=== PATIENT | male | born 1955 | race Caucasian/White ===

== ENCOUNTER 2024-05-26 08:38 | Outpatient (AMB) | payer MEDICARE, OTHER, SELFPAY ==
--- NOTE | 2024-05-26 08:50 | MHC.OFFVIS ---
Intake Visit Reasons: BPH/ Nephrolithiasis/ Retro Ejaculation Intake Note: Patient is present for BPH/Nephrolithiasis/Retro Ejaculation Urology Medication:tamsulosin Antibiotic Allergy:none Blood Thinner:none Library Circulation Assistant Required: No Allergies No Known Allergies Allergy (Verified 05/26/24 08:51) HPI Comments Details: Elliot is a pleasant male. He is a patient of Dr. Alberto. He seen for the following urologic conditions - microscopic hematuria - nephrolithiasis - lower urinary tract symptoms Ongoing intermittent hematuria Difficulty with urinary stream had been placed on tamsulosin with variable effect Recent ultrasound shows 2 cm x 2 bladder stones Will switch tamsulosin to terazosin 5 mg and add finasteride Has enlarged prostate Cystoscopy in office Did discuss high likelihood he will require prostate procedure later in the year Review of Systems Const Denies chills and Denies fever(s) Card Reports no additional complaints and Denies syncope Resp Denies cough GI Denies abdominal pain and Denies heartburn Reports as per HPI and Denies change in libido Neuro Denies syncope Psych Denies change in libido Endo Denies change in libido Physical Exam Const General: cooperative, healthy appearing, comfortable and no acute distress Orientation/consciousness: patient oriented x3 HEENT Face and sinus: Yes normal facial exam Mouth: moist mucous membranes Neck Neck: Yes normal visual inspection, Yes full ROM and Yes trachea midline Chest Chest palpation & inspection: normal inspection of the chest Resp Effort & Inspection: normal respiratory effort, able to speak in complete sentences and no respiratory distress GI Inspection: Yes normal to inspection Back/Spine/Pelvis Cervical Spine: normal cervical lordosis Thoracic/Lumbar Spine: thoracic and lumbar spine normal to inspection Skin General skin exam: no rashes or lesions noted Neuro General: patient oriented x3, gait normal, tone normal and moves all extremities Extrem General: Yes normal to inspection and Yes capillary refill normal Results AMB Urinalysis, Automated UA Leukoctes 0 Kuldip/uL Last Edit by FLOR Kerr on 05/26/24 09:02 UA Nitrite Negative Last Edit by FLOR Kerr on 05/26/24 09:02 UA Urobilinogen 0.2 mg/dL Last Edit by FLOR Kerr on 05/26/24 09:02 UA Protein 100 mg/dL Last Edit by FLOR Kerr on 05/26/24 09:02 UA pH 5.5 Last Edit [facility] on 05/26/24 09:02 UA Blood 200 Miguel Angel/uL Last Edit by FLOR Kerr on 05/26/24 09:02 UA Specific Epps 1.025 Last Edit by FLOR Kerr on 05/26/24 09:02 UA Ketone Negative Last Edit by FLOR Kerr on 05/26/24 09:02 UA Bilirubin 0 mg/dL Last Edit [facility] on 05/26/24 09:02 UA Glucose 0 mg/dL Last Edit by [facility] on 05/26/24 09:02 Assessment & Plan Assessment & Plan (1) Bladder stones: Code(s): N21.0 - Calculus in bladder Category: Medical (2) Bladder outlet obstruction: Code(s): N32.0 - Bladder-neck obstruction Category: Medical (3) Microscopic hematuria: Code(s): R31.29 - Other microscopic hematuria Category: Medical Plan Adjust medications Four week follow-up cysto for bladder stones Orders: Orders AMB Urinalysis Automated Today Z13.9 - Encounter for screening, unspecified Patient Instructions: Imaging studies, laboratory and physical exam results were discussed and reviewed in detail. No major barriers to patient understanding were identified. An opportunity to ask questions regarding the treatment plan was provided. All questions were answered. The patient expressed understanding and agreement with the above treatment plan. The patient is aware they should contact our office by phone for worsening of their current condition or the appearance of new urologic symptoms. Compliance is encouraged with any medications and followup testing that is ordered. It is a privilege to participate in the urologic care of your patient. If you have any questions or concerns regarding treatment for the above conditions, or other urologic issues, please do not hesitate to contact me. The office telephone contact is [phone]. This note is constructed using voice recognition software. While every effort has been made to ensure accuracy group billing coordinator errors may have been included. Yours sincerely, Dr Tonio Veras MD, [facility] - Urology Providers of Expert, Compassionate Care for the Genitourinary System Coding Level of Care Code New Pt Level 4 (02521) Diagnoses Bladder stones N21.0 Bladder outlet obstruction N32.0 Microscopic hematuria R31.29
== END 2024-05-26 09:21 | disposition home or self-care (01) ==
PROVIDERS: PCP Physician Assistant Medical; Visit Provider Urology
DX: N21.0 Calculus in bladder (principal); N32.0 Bladder-neck obstruction; R31.29 Other microscopic hematuria; Z13.9 Encounter for screening, unspecified
CPT/HCPCS: 99204

== ENCOUNTER → 2024-05-26 08:38 | Outpatient (BNVA) | payer MEDICARE, OTHER, SELFPAY | PROVIDERS: PCP Physician Assistant Medical; Visit Provider Urology | DX: R31.29 Other microscopic hematuria (principal); N21.0 Calculus in bladder; N32.0 Bladder-neck obstruction | CPT/HCPCS: 81003; 99202 ==

== ENCOUNTER 2024-06-19 11:04 | Outpatient (REF) | payer MEDICARE, OTHER, SELFPAY ==
[2024-06-19 13:02] LABS: Appearance Urine Clear; Color Urine Yellow; Glucose Urine UA Negative (Negative); Leukocyte Esterase Urine Trace (Negative); Nitrite Urine Negative (Negative); PH 6.5 (5.0-9.0); UMIC TRIGGER UA YES; Urine Blood Moderate (2+) (Negative); Urine Ketones Negative (Negative); Urine Protein 300 (3+) mg/dL (Neg-Trace)
[2024-06-19 13:06] LABS: Bacteria Urine None Seen (None Seen); RBC Urine >20 /HPF (0-2); Squamous Epithelial Cell Urine 0-2 /HPF (0-2)
== END 2024-06-19 11:05 | disposition home or self-care (01) ==
LOC: HO.LAB 11:04
PROVIDERS: PCP Physician Assistant Medical; Visit Provider Urology
DX: R31.29 Other microscopic hematuria (principal)
CPT/HCPCS: 81001; 87086

== ENCOUNTER 2024-06-22 10:51 | Outpatient (AMB) | payer MEDICARE, OTHER, SELFPAY ==
--- NOTE | 2024-06-22 11:07 | MHC.OFFVIS ---
Intake Visit Reasons: cysto(Frequency/Possible UTI) Intake Note: Patient is Present for Cystoscopy/Bladder Stones Urology Med: Finasteride, Terazosin, Tamsulosin Antibiotic Allergy: None Blood Thinner:none URO- G Disposable Cystoscope lot: [id number] exp:01/06/2027 Allergies No Known Allergies Allergy (Verified 06/22/24 11:08) HPI Comments Details: Elliot is a pleasant male. He is a patient of Dr. Alberto. He seen for the following urologic conditions - microscopic hematuria - nephrolithiasis - lower urinary tract symptoms Ongoing intermittent hematuria Difficulty with urinary stream had been placed on tamsulosin with variable effect Recent ultrasound shows 2 cm x 2 bladder stones Will switch tamsulosin to terazosin 5 mg and add finasteride Has enlarged prostate Cystoscopy in office Did discuss high likelihood he will require prostate procedure later in the year Plan on laser procedure bladder stones Review of Systems Const Denies chills and Denies fever(s) Card Reports no additional complaints and Denies syncope Resp Denies cough GI Denies abdominal pain and Denies heartburn Reports as per HPI and Denies change in libido Neuro Denies syncope Psych Denies change in libido Endo Denies change in libido Physical Exam Const General: cooperative, healthy appearing, comfortable and no acute distress Orientation/consciousness: patient oriented x3 HEENT Face and sinus: Yes normal facial exam Mouth: moist mucous membranes Neck Neck: Yes normal visual inspection, Yes full ROM and Yes trachea midline Chest Chest palpation & inspection: normal inspection of the chest Resp Effort & Inspection: normal respiratory effort, able to speak in complete sentences and no respiratory distress GI Inspection: Yes normal to inspection Back/Spine/Pelvis Cervical Spine: normal cervical lordosis Thoracic/Lumbar Spine: thoracic and lumbar spine normal to inspection Skin General skin exam: no rashes or lesions noted Neuro General: patient oriented x3, gait normal, tone normal and moves all extremities Extrem General: Yes normal to inspection and Yes capillary refill normal Office Procedures Cystoscopy Consent Discussed risk and benefit or proposed procedure with the patient. Information consent for procedure given to the patient. Discussed technical aspects, risks, benefits and alternatives in full. Addressed all of the patient's questions and concerns regarding the procedure. The patient demonstrated knowledge and understanding. They wish to proceed with this procedure. Preparation The patient was prepped in the usual manner. A sourcing manager was present and in the room. Genitalia was prepped with betadine solution in a sterile manner. Lidocaine Jelly 2% was placed into the urethra and 16Fr flexible Olympus cystoscope was inserted into the meatus after adequate lubrication. Procedure Cystoscopy performed using a disposable Urovue digital 16 Vietnamese cystoscope. Meatus normal position Urethra anterior and posterior urethra normal Prostatic Urethra trilobar hyperplasia Bladder examination with retroflexion of cystoscope Bladder Orifices normal shape and position Bladder Capacity medium - 2 bladder stones Trabeculations - Cellule Formation - Diverticulum Formation - Mucosal Erythema - Bladder Tumor - [id number] DISPOSABLE SCOPE URO-G FLEXIBLE SCOPE Procedure code (CPT) selection complete Office Meds lidocaine HCl 2 % mucosal jelly in applicator Performing Provider: Tonio Veras MD Performing Location: [facility] [place] [facility] Administered by: Alvin Rodriguez LPN on 06/22/24 11:49 Dose Route Admin Location Dispensed Lot Number Expiration Date [facility] [place] Hydraulic Elevator Constructor 10 mL intra-urethral 10 mL nitrofurantoin monohydrate/macrocrystals 100 mg capsule Performing Provider: Tonio Veras MD Performing Location: [facility] [facility] Administered by: Alvin Rodriguez LPN on 06/22/24 11:49 Dose Route Admin Location Dispensed Lot Number Expiration Date [facility] [place] Hydraulic Elevator Constructor 100 mg PO 1 cap naproxen 500 mg tablet Performing Provider: Tonio Veras MD Performing Location: [facility] [place] [facility] Administered by: Alvin Rodriguez LPN on 06/22/24 11:49 Dose Route Admin Location Dispensed Lot Number Expiration Date [place] Hydraulic Elevator Constructor 500 mg PO 1 tab Results AMB Urinalysis, Automated UA Leukoctes 0 Kuldip/uL Last Edit by YASMEEN Posada on 06/22/24 11:45 UA Nitrite Negative Last Edit by YASMEEN Posada on 06/22/24 11:45 UA Urobilinogen 0.2 mg/dL Last Edit by YASMEEN Posada on 06/22/24 11:45 UA Protein 100 mg/dL Last Edit by YASMEEN Posada on 06/22/24 11:45 UA pH 7.5 Last Edit by YASMEEN Posada on 06/22/24 11:45 UA Blood 200 Miguel Angel/uL Last Edit by YASMEEN Posada on 06/22/24 11:45 UA Specific [place] 1.015 Last Edit by Carli Chase, RMA on 06/22/24 11:45 UA Ketone Negative Last Edit by Carli Chase RMA on 06/22/24 11:45 UA Bilirubin 0 mg/dL Last Edit by Carli Chase, RMA on 06/22/24 11:45 UA Glucose 0 mg/dL Last Edit by Carli Chase, A on 06/22/24 11:45 Results Reviewed Results Reviewed: Laboratory Last Values Urine pH (Auto) 7.5 06/22/24 11:44 Specific [place] (Auto) 1.015 06/22/24 11:44 Urine Protein (Auto) 100 mg/dL 06/22/24 11:44 Glucose (UA)(Auto) 0 mg/dL 06/22/24 11:44 Urine Ketones (Auto) Negative 06/22/24 11:44 Urine Blood (Auto) 200 Miguel Angel/uL 06/22/24 11:44 Urine Nitrite (Auto) Negative 06/22/24 11:44 Urine Bilirubin (Auto) 0 mg/dL 06/22/24 11:44 Urine Urobilinogen (Auto) 0.2 mg/dL 06/22/24 11:44 Leukocyte Esterase (Auto) 0 Kuldip/uL 06/22/24 11:44 Assessment & Plan Assessment & Plan (1) Bladder stones: Code(s): N21.0 - Calculus in bladder Category: Medical (2) Bladder outlet obstruction: Code(s): N32.0 - Bladder-neck obstruction Category: Medical Plan Risks, benefits and alternatives to therapy were discussed. These include but are not limited to infection, bleeding, damage to local organs and tissues, need for further interventions. Anesthetic risks regarding cardiac arrhythmia, blood clots, and potential mortality were discussed. The patient understands the typical recovery time and the outpatient nature of the procedure. After consideration of these risks the patient gives full informed consent and they wish to move ahead with the procedure. Orders: Orders AMB Cystoscopy 06/22/24 N21.0 - Calculus in bladder AMB Urinalysis Automated 06/22/24 Z13.9 - Encounter for screening, unspecified Patient Instructions: Imaging studies, laboratory and physical exam results were discussed and reviewed in detail. No major barriers to patient understanding were identified. An opportunity to ask questions regarding the treatment plan was provided. All questions were answered. The patient expressed understanding and agreement with the above treatment plan. The patient is aware they should contact our office by phone for worsening of their current condition or the appearance of new urologic symptoms. Compliance is encouraged with any medications and followup testing that is ordered. It is a privilege to participate in the urologic care of your patient. If you have any questions or concerns regarding treatment for the above conditions, or other urologic issues, please do not hesitate to contact me. The office telephone contact is [phone]. This note is constructed using voice recognition software. While every effort has been made to ensure accuracy histologist technologist errors may have been included. Yours sincerely, Dr Tonio Veras MD, [facility] - Urology Providers of Expert, Compassionate Care for the Genitourinary System Coding Level of Care Code Est Pt Level 4 (52272) Diagnoses Bladder stones N21.0 Bladder outlet obstruction N32.0 CPT Codes Cystoscopy - CPT: [id number] ([id number])
== END 2024-06-22 12:21 | disposition home or self-care (01) ==
PROVIDERS: PCP Physician Assistant Medical; Visit Provider Urology
DX: N21.0 Calculus in bladder (principal); Z13.9 Encounter for screening, unspecified
CPT/HCPCS: 52000; 99214

== ENCOUNTER → 2024-06-22 10:51 | Outpatient (BNVA) | payer MEDICARE, OTHER, SELFPAY | PROVIDERS: PCP Physician Assistant Medical; Visit Provider Urology | DX: N21.0 Calculus in bladder (principal); N32.0 Bladder-neck obstruction | CPT/HCPCS: 52000; 81003; 99212 ==

== ENCOUNTER 2024-08-14 08:01 | Day surgery (SDC) | payer MEDICARE, OTHER, SELFPAY ==
[2024-08-10 11:12] VITALS: BMI 25.6
--- NOTE | 2024-08-10 13:57 | HO.ANESPROP2 ---
Documented by User: Lisa Beck NP 08/10/24 13:57 HPI - Anesthesia Eval Consult details Narrative: 69yo M for Laser Ablation Prostate w/Green Light, bladder stone removal PMFSH Active Problems Active Problems: All Active Problems Microscopic hematuria (Acute) Bladder outlet obstruction (Acute) Bladder stones (Acute) Past Medical History Medical History Horseshoe kidney BPH (benign prostatic hyperplasia) Renal calculi Diverticular disease Elevated cholesterol Surgical History Surgical History (Updated 08/14/24 @ 08:28 by Cleopatra Sanchez, RN) Hx of oral surgery Hx of vasectomy Social History Social History (Updated 08/10/24 @ 11:13 by Olga Lyman RN) Patient Tobacco Use Status: Former Tobacco user Tobacco use type: Cigarette Use of substances other than those prescribed or required for medical reasons: No Are you DNR?: No Advance Directives: No Advance Directives Information Provided: Yes Meds Allergies Allergy/AdvReac Type Severity Reaction Status Date / Time No Known Allergies Allergy Verified 06/22/24 11:08 Home Medications ?Medication ?Instructions ?Recorded ?Confirmed ?Last Taken ?Type tamsulosin 0.4 mg capsule 0.8 mg PO BEDTIME 05/26/24 08/10/24 Unknown History Exam Height,Weight and Vital Signs: Height 5 ft 2.25 in Weight 63.957 kg Assessment and Plan Assessment Anesthesia Assessment: Chart Reviewed Documented by User: Raymundo Mak MD 08/14/24 11:15 PMFSH Past Medical History Medical History Horseshoe kidney BPH (benign prostatic hyperplasia) Renal calculi Diverticular disease Elevated cholesterol Family History Family history of problems with anesthesia: No Surgical History Surgical History (Updated 08/14/24 @ 08:28 by Cleopatra Sanchez RN) Hx of oral surgery Hx of vasectomy History of Problems with Anesthesia: No Social History Social History (Updated 08/10/24 @ 11:13 by Olga Lyman RN) Patient Tobacco Use Status: Former Tobacco user Tobacco use type: Cigarette Use of substances other than those prescribed or required for medical reasons: No Are you DNR?: No Advance Directives: No Advance Directives Information Provided: Yes Meds Allergies Allergy/AdvReac Type Severity Reaction Status Date / Time No Known Allergies Allergy Verified 06/22/24 11:08 Home Medications ?Medication ?Instructions ?Recorded ?Confirmed ?Last Taken ?Type tamsulosin 0.4 mg capsule 0.8 mg PO BEDTIME 05/26/24 08/10/24 Unknown History Exam Airway Mallampati Class: I TM Dist: <=3cm Neck ROM: Full Loose/Missing/Broken Teeth: No Heart: ok Lungs: ok Assessment and Plan Assessment Anesthesia Assessment: Anesthesia Plan Discussed Final Anesthetic Review Family History of Problems with Anesthesia: No History of Problems with Anesthesia: No NPO: Yes ASA Class: II Final Preanesthetic Review: No Changes in Pt Med Stat, Meds/Allgs Chart Reviewed, Consent Obtained/Reviewed and Anes Risks/Benef Reviewed Patient Risk: Low Procedure Risk: Low Anesthetic Plan Anesthetic Plan: GA and Agree w/ Assess. and Plan Disposition: Standard PACU
[2024-08-14 08:29] VITALS: BMI 25.4
[2024-08-14 08:39] VITALS: BP 124/73; PULSE 80; RESP 15; TEMP 36.7; O2SAT 95
[2024-08-14] MEDS: Lactated Ringers 1,000 ML 100 ML IVCONT (08:51)
--- NOTE | 2024-08-14 10:43 | P.HPSUR_ITS ---
Pre-Procedural Eval Section A - 24 Hr Update-Section A only Date of Service: 08/14/24 The patient is an INPATIENT: No Changes since office visit: No Cold of Flu in the past 2 weeks, No New Medical Problems, No Changes in Medication and No Patient answered all questions The patient has been examined within 24 hours of the surgical procedure. The History & Physical has been completed within 30 days and I have reviewed it.: Yes Section B - Complete if H&P > 30 days Chief Complaint: Benign prostatic hyperplasia with lower urinary tr Details of Present Illness: Cystoscopy, laser bladder stone, GreenLight laser prostate Relevant Family History (Specify if Yes): No Relevant Social History: None Present Medications: see Short Stay Collaborative assessment Medical History: No relevant PMH History of Previous Operations: No relevant previous surgery Allergies: Allergies Allergy/AdvReac Type Severity Reaction Status Date / Time No Known Allergies Allergy Verified 06/22/24 11:08 Review of Systems Sugical H&P ROS: Negative: Constitution, Cardiovascular, Respiratory, Neurological, Psychiatric, Hem-Onc, Allergic/Immunologic, Gastrointestinal, Genitourinary, Musculoskeletal, Integumentary, Endocrine and Eyes/Ears/Nose/Throat Exam Surgical H&P Exam: Normal: HEENT, Normal: Heart, Normal: Lungs, Normal: Extremit ies, Normal: Abdomen, Normal: Skin and Normal: Neurological Plan Diagnosis/Plan: Unchanged (Cystoscopy, laser prostate, GreenLight laser prostate) I have reviewed the history and physical and performed a pertinent physical examination on my patient. No changes have occurred unless specified. Time Spent With Patient Time: Total time managing care of this patient today ____ minutes.
--- NOTE | 2024-08-14 12:05 | P.OP_ITS ---
Operative Note Operative Note Date of Service: 08/14/24 Narrative: PreOperative Diagnosis: 1.) Bladder stones 2 x 2 cm 2) Bladder outlet obstruction Post Operative Diagnosis: Same as above Procedure: GreenLight Laser Enucleation of the prostate CPT 94289 Laser cysto litholapaxy Surgeon: Dr Tonio Veras Anesthesia: General History of bladder outlet obstruction. Presented with bladder stones and urgency and frequency on imaging Cystoscopy confirmed 2 x 2 cm stones with trilobar hypertrophy Procedure: After informed consent was verified the patient was brought to the operating room and placed in a supine position. Anesthesia was administered per protocol. Patient was placed in modified dorsal lithotomy position and prepped and draped in a sterile fashion. Safety pause time-out was confirmed. Antibiotics have been given. A Twenty-four Nigerian laser cystoscope was inserted per urethra. No abno rmalities were found of the anterior and bulbar urethra. The prostatic urethra shows trilobar hypertrophy. The bladder was examined and both ureteric orifices were seen in their normal positions away from the area of interest. Bladder trabeculation Grade 1. Two bladder stones in place 2 cm each. Using a 980 nm holmium laser fiber the 2 stones were broken into small pieces using a combination of hammer and dusting settings. This had a range of frequency from 5-15 hertz range of power from 1.2-2.0 J. This took approximately 30-40 minutes to break the 2 bladder stones into small pieces and remove them from the bladder. Using a GreenLight laser with settings of 80 aldridge incisions were made at the 5 and 7 o'clock position. The incisions were taken down from the bladder neck down to the level of the veru. These were gradually deepened in order to define the lateral aspects of the median lobe area. Once clearly defined they will also extended in the lateral directions in order to create a deep groove. The median lobe was then ablated and enucleated tissue released into the bladder with the laser power increased to 120 W. since there was a rather long prostate there was an up willing of tissue. Initially the median lobe had not appeared to be prominent but as resection went on further tissue presented itself into the operative field. The lateral grooves had to be re-deepened and intervening tissue was removed on 2-3 separate occasions. Eventually this led us down to circular fibers that represent the surgical capsule end of the dissection was stopped at this level. The area of the apex of the prostate was carefully dissected laterally on each side in order to give more fullness. On each lateral lobe undermining was performed bilaterally up the curve of the apex and along each sidewall. At this point in time there was a very open prostate and a decision was made not to proceed with full lateral lobe removal. When this was had been completed debris and pieces of prostate were removed from the bladder with irrigation. Both ureteric orifices were reviewed again in shown to be patent in away from any areas of energy damage. The apical area was reviewed in any stray ooze was controlled. A 22 Nigerian 30 cc balloon Calderon catheter was placed over a stylet into the bladder. Clear efflux was obtained upon irrigation with a Laya piston syringe. 50 cc was placed in the balloon and gentle traction was placed. A snap was used to hold tension on the catheter to control bleeding during patient moved and transported. A drainage bag was placed. Once transportation is complete to the PACU the snap will be removed. The patient tolerated the procedure well, he was extubated in the operating and transferred in a stable condition to the recovery area. Total Power [id number] Lasing time 1939 Pathology: Prostate tissue, bladder stones Drains: Calderon catheter
[2024-08-14 12:13] VITALS: BP 116/76; PULSE 70; RESP 16; TEMP 36.1; O2SAT 96
[2024-08-14 12:18] VITALS: BP 116/75; PULSE 71; RESP 16; O2SAT 96
[2024-08-14 12:23] VITALS: BP 116/72; PULSE 67; RESP 16; O2SAT 98
[2024-08-14 12:28] VITALS: BP 118/77; PULSE 73; RESP 16; O2SAT 97
[2024-08-14 12:43] VITALS: BP 120/75; PULSE 73; RESP 16; TEMP 36.1; O2SAT 97
== END 2024-08-14 13:13 | disposition home or self-care (01) ==
PROVIDERS: PCP Physician Assistant Medical; Visit Provider Urology
PROC: (CPT 52648; principal; 2024-08-14 09:40)
DX: N40.1 Benign prostatic hyperplasia with lower urinary tract symptoms (principal); N32.0 Bladder-neck obstruction; N21.0 Calculus in bladder; R39.15 Urgency of urination; R35.0 Frequency of micturition; Q63.1 Lobulated, fused and horseshoe kidney; E78.00 Pure hypercholesterolemia, unspecified; K57.30 Diverticulosis of large intestine without perforation or abscess without bleeding; Z98.52 Vasectomy status; Z79.899 Other long term (current) drug therapy
CPT/HCPCS: 52649; 52317; 88300; 88305; J1956; J2704; J3010

== ENCOUNTER → 2024-08-14 08:01 | Outpatient (BNV) | payer MEDICARE, OTHER, SELFPAY | PROVIDERS: PCP Physician Assistant Medical; Visit Provider Urology | DX: N40.1 Benign prostatic hyperplasia with lower urinary tract symptoms (principal); N21.0 Calculus in bladder | CPT/HCPCS: 52317; 52649 ==

== ENCOUNTER → 2024-08-17 08:06 | Outpatient (BNVA) | payer MEDICARE, OTHER, SELFPAY | PROVIDERS: PCP Physician Assistant Medical; Visit Provider Urology | DX: N21.0 Calculus in bladder (principal); N32.0 Bladder-neck obstruction; Z46.6 Encounter for fitting and adjustment of urinary device | CPT/HCPCS: 51700; 51798 ==

== ENCOUNTER 2024-11-08 15:17 | Outpatient (AMB) | payer MEDICARE, OTHER, SELFPAY ==
--- NOTE | 2024-11-08 15:43 | A.OFFVIS_ITS ---
Intake Visit Reasons: [facility]- follow up Intake Note: Patient is present for Urology Med: Antibiotic Allergy: Blood Thinner: Last PVR: Todays PVR: 45ml's LABS: Patient Symptoms: None Allergies No Known Allergies Allergy (Verified 11/08/24 15:48) HPI Comments Details: Elliot is a pleasant male. He is a patient of Dr. Alberto. He seen for the following urologic conditions - microscopic hematuria - nephrolithiasis - lower urinary tract symptoms Follow-up from [facility] 08/15 Removal of bladder stones PVR controlled - six-month follow-up Lower urinary tract symptoms with bladder stones Will switch tamsulosin to terazosin 5 mg and add finasteride Has enlarged prostate Cystoscopy in office [facility] 08/15 [facility] Medical History Horseshoe kidney BPH (benign prostatic hyperplasia) Renal calculi Diverticular disease Elevated cholesterol Surgical History (Updated 08/14/24 @ 08:28 by Cleopatra Sanchez RN) Hx of oral surgery Hx of vasectomy Social History (Updated 08/10/24 @ 11:13 by Olga Lyman RN) Patient Tobacco Use Status: Former Tobacco user Tobacco use type: Cigarette Review of Systems Const Denies chills and Denies fever(s) Card Reports no additional complaints and Denies syncope Resp Denies cough GI Denies abdominal pain and Denies heartburn Reports as per HPI and Denies change in libido Neuro Denies syncope Psych Denies change in libido Endo Denies change in libido Physical Exam Const General: cooperative, healthy appearing, comfortable and no acute distress Orientation/consciousness: patient oriented x3 HEENT Face and sinus: Yes normal facial exam Mouth: moist mucous membranes Neck Neck: Yes normal visual inspection, Yes full ROM and Yes trachea midline Chest Chest palpation & inspection: normal inspection of the chest Resp Effort & Inspection: normal respiratory effort, able to speak in complete sentences and no respiratory distress GI Inspection: Yes normal to inspection Back/Spine/Pelvis Cervical Spine: normal cervical lordosis Thoracic/Lumbar Spine: thoracic and lumbar spine normal to inspection Skin General skin exam: no rashes or lesions noted Neuro General: patient oriented x3, gait normal, tone normal and moves all extremities Extrem General: Yes normal to inspection and Yes capillary refill normal Assessment & Plan Assessment & Plan (1) Bladder stones: Code(s): N21.0 - Calculus in bladder Category: Medical (2) Bladder outlet obstruction: Code(s): N32.0 - Bladder-neck obstruction Category: Medical Plan Six-month follow-up PSA Orders: Orders AMB Post Void Residual by ultrasound 11/08/24 R35.0 - Frequency of micturition Prostate Specific Antigen 6 Months N32.0 - Bladder-neck obstruction Patient Instructions: Imaging studies, laboratory and physical exam results were discussed and reviewed in detail. No major barriers to patient understanding were identified. An opportunity to ask questions regarding the treatment plan was provided. All questions were answered. The patient expressed understanding and agreement with the above treatment plan. The patient is aware they should contact our office by phone for worsening of their current condition or the appearance of new urologic symptoms. Compliance is encouraged with any medications and followup testing that is ordered. It is a privilege to participate in the urologic care of your patient. If you have any questions or concerns regarding treatment for the above conditions, or other urologic issues, please do not hesitate to contact me. The office telephone contact is [phone]. This note is constructed using voice recognition software. While every effort has been made to ensure accuracy county judge errors may have been included. Yours sincerely, Dr Tonio Veras MD, [facility] - Urology Providers of Expert, Compassionate Care for the Genitourinary System Coding Level of Care Code Est Pt Level 3 (61107) Diagnoses Bladder stones N21.0 Bladder outlet obstruction N32.0
== END 2024-11-08 16:23 | disposition home or self-care (01) ==
PROVIDERS: PCP Physician Assistant Medical; Visit Provider Urology
DX: N21.0 Calculus in bladder (principal); N32.0 Bladder-neck obstruction
CPT/HCPCS: 99024

== ENCOUNTER → 2024-11-08 15:17 | Outpatient (BNVA) | payer MEDICARE, OTHER, SELFPAY | PROVIDERS: PCP Physician Assistant Medical; Visit Provider Urology | DX: N21.0 Calculus in bladder (principal); N32.0 Bladder-neck obstruction | CPT/HCPCS: 99212 ==

== ENCOUNTER 2025-05-04 12:38 | Outpatient (REF) | payer MEDICARE, OTHER, SELFPAY ==
[2025-05-04 14:28] LABS: Prostate Specific Antigen 1.99 ng/mL (<0.05-4.0)
== END 2025-05-04 12:39 | disposition home or self-care (01) ==
LOC: HO.LAB 12:38
PROVIDERS: Visit Provider Urology
DX: Z12.5 Encounter for screening for malignant neoplasm of prostate (principal); N32.0 Bladder-neck obstruction
CPT/HCPCS: 36415; 84153

== ENCOUNTER 2025-05-10 08:50 | Outpatient (REF) | payer MEDICARE, OTHER, SELFPAY ==
[2025-05-10 17:42] LABS: Urine Cytology See Pathology rpt
== END 2025-05-10 08:51 | disposition home or self-care (01) ==
LOC: HO.LNP 08:50
PROVIDERS: PCP Physician Assistant Medical; Visit Provider Urology
DX: N32.0 Bladder-neck obstruction (principal); R31.29 Other microscopic hematuria
CPT/HCPCS: 51798; 81003; 87086; 88112; 99212

== ENCOUNTER 2025-05-10 08:50 | Outpatient (AMB) | payer MEDICARE, OTHER, SELFPAY ==
--- NOTE | 2025-05-10 08:57 | A.OFFVIS_ITS ---
Intake Visit Reasons: 6M PSA/PVR Intake Note: Patient is present for 6M/PSA/PVR Urology Medication:FINASTERIDE,TERAZOSIN Antibiotic Allergy:NONE Blood Thinner:NONE TODAY'S PVE:0ML'S Concrete Rubber Required: No Allergies No Known Allergies Allergy (Verified 05/10/25 08:59) HPI Comments Details: Elliot is a pleasant male. He is a patient of Dr. Alberto. He seen for the following urologic conditions - microscopic hematuria - nephrolithiasis - lower urinary tract symptoms Follow-up from [facility] 08/15 Removal of bladder stones Yearly follow-up Has 3+ blood with 2+ leukocytes May stop finasteride Six-month follow-up repeat UA Urinary Symptoms Review - Blood in urine noted during the visit - Nocturia occurring around 4 or 5 AM - Decreased urinary stream strength - History of using protective pads due to incontinence - Previous heavy alcohol use impacting bladder function Lower urinary tract symptoms with bladder stones Will switch tamsulosin to terazosin 5 mg and add finasteride Has enlarged prostate Cystoscopy in office [facility] 08/15 PSA 05/16 2.0 PFSH Medical History Horseshoe kidney BPH (benign prostatic hyperplasia) Renal calculi Diverticular disease Elevated cholesterol Surgical History (Updated 08/14/24 @ 08:28 by Cleopatra Sanchez RN) Hx of oral surgery Hx of vasectomy Social History (Updated 08/10/24 @ 11:13 by Olga Lyman RN) Patient Tobacco Use Status: Former Tobacco user Tobacco use type: Cigarette Review of Systems Const Denies chills and Denies fever(s) Card Reports no additional complaints and Denies syncope Resp Denies cough GI Denies abdominal pain and Denies heartburn Reports as per HPI and Denies change in libido Neuro Denies syncope Psych Denies change in libido Endo Denies change in libido Physical Exam Const General: cooperative, healthy appearing, comfortable and no acute distress Orientation/consciousness: patient oriented x3 HEENT Face and sinus: Yes normal facial exam Mouth: moist mucous membranes Neck Neck: Yes normal visual inspection, Yes full ROM and Yes trachea midline Chest Chest palpation & inspection: normal inspection of the chest Resp Effort & Inspection: normal respiratory effort, able to speak in complete sentences and no respiratory distress GI Inspection: Yes normal to inspection Back/Spine/Pelvis Cervical Spine: normal cervical lordosis Thoracic/Lumbar Spine: thoracic and lumbar spine normal to inspection Skin General skin exam: no rashes or lesions noted Neuro General: patient oriented x3, gait normal, tone normal and moves all extremities Extrem General: Yes normal to inspection and Yes capillary refill normal Office Procedures Post Void Residual Post Residual Void Post Void Residual (PVR): 0 [id number]-[id number] Void Residual by ultrasound Assessment & Plan Assessment & Plan (1) Microscopic hematuria: Code(s): R31.29 - Other microscopic hematuria Category: Medical (2) Bladder outlet obstruction: Code(s): N32.0 - Bladder-neck obstruction Category: Medical Plan 1. Hematuria Discontinue terazosin and reassess in six months. 2. History Of Bladder Stones Monitor for recurrence of symptoms. 3. History Of Alcohol Use Disorder Patient remains abstinent; bladder function improving. Discussion Notes We discussed the presence of blood in the urine and the plan to discontinue terazosin to observe any changes in symptoms. I advised a follow-up in six months to reassess urinary symptoms and ensure no persistent hematuria. We also reviewed the patient's history of bladder stones and alcohol use disorder, noting improvements in bladder function. Patient Instructions - Stop taking terazosin and monitor urinary symptoms. - Keep remaining medication aside for potential future use. - Return for follow-up in six months to check urine and symptoms. Orders: Orders AMB Urinalysis Automated Today Z13.9 - Encounter for screening, unspecified Urine Cytology Today R31.29 - Other microscopic hematuria Urine Culture Today R31.29 - Other microscopic hematuria Patient Instructions: This note is constructed using voice recognition software. While every effort has been made to ensure accuracy event set up specialist errors may have been included. Imaging studies, laboratory and physical exam results were discussed and reviewed in detail. No major barriers to patient understanding were identified. An opportunity to ask questions regarding the treatment plan was provided. All questions were answered. The patient expressed understanding and agreement with the above treatment plan. The patient is aware they should contact our office by phone for worsening of their current condition or the appearance of new urologic symptoms. Compliance is encouraged with any medications and followup testing that is ordered. It is a privilege to participate in the urologic care of your patient. If you have any questions or concerns regarding treatment for the above conditions, or other urologic issues, please do not hesitate to contact me. The office telephone contact is [phone]. Sincerely, Dr Tonio Veras MD, [facility] - Urology Compassionate Specialist Care for the Genitourinary System Coding Level of Care Code Est Pt Level 3 (57997) Diagnoses Microscopic hematuria R31.29 Bladder outlet obstruction N32.0 CPT Codes Post Residual Void - PVR CPT Code: 14878-Yhxe Void Residual by ultrasound ([id number])
== END 2025-05-10 09:28 | disposition home or self-care (01) ==
LOC: HO.HUSH 08:51
PROVIDERS: PCP Physician Assistant Medical; Visit Provider Urology
DX: R31.29 Other microscopic hematuria (principal); N32.0 Bladder-neck obstruction; Z13.9 Encounter for screening, unspecified
CPT/HCPCS: 99213

== ENCOUNTER 2025-11-09 09:49 | Outpatient (AMB) | payer MEDICARE, OTHER, SELFPAY ==
--- NOTE | 2025-11-09 09:56 | A.OFFVIS_ITS ---
Intake Visit Reasons: 6M UA/PVR(SET) Intake Note: Reason for Visit: PVR/UA Follow Up Urology Meds: Terazosin, Finasteride Blood Thinners: None Labs: PSA- 1.99 (05/04/2025) Last Cytology: 05/11/2025 Imaging: None Last PVR: 0ml PVR: 0ml Allergies No Known Allergies Allergy (Verified 05/10/25 08:59) HPI Comments Details: Elliot is a pleasant male. He is a patient of Dr. Alberto. He seen for the following urologic conditions - microscopic hematuria - nephrolithiasis - lower urinary tract symptoms Follow-up from [facility] 08/15 PSA remaining low PVR 0 Off medications UA does show blood and leukocytes Twelve month follow-up Urinary Symptoms Review - Blood in urine noted during the visit - Nocturia occurring around 4 or 5 AM - Decreased urinary stream strength - History of using protective pads due to incontinence Lower urinary tract symptoms with bladder stones Will switch tamsulosin to terazosin 5 mg and add finasteride Has enlarged prostate Cystoscopy in office [facility] 08/15 PSA 05/16 2.0 PFSH Medical History Horseshoe kidney BPH (benign prostatic hyperplasia) Renal calculi Diverticular disease Elevated cholesterol Surgical History (Updated 08/14/24 @ 08:28 by Cleopatra Sanchez RN) Hx of oral surgery Hx of vasectomy Social History (Updated 08/10/24 @ 11:13 by Olga Lyman RN) Patient Tobacco Use Status: Former Tobacco user Tobacco use type: Cigarette Review of Systems Const Denies chills and Denies fever(s) Card Reports no additional complaints and Denies syncope Resp Denies cough GI Denies abdominal pain and Denies heartburn Reports as per HPI and Denies change in libido Neuro Denies syncope Psych Denies change in libido Endo Denies change in libido Physical Exam Const General: cooperative, healthy appearing, comfortable and no acute distress Orientation/consciousness: patient oriented x3 HEENT Face and sinus: Yes normal facial exam Mouth: moist mucous membranes Neck Neck: Yes normal visual inspection, Yes full ROM and Yes trachea midline Chest Chest palpation & inspection: normal inspection of the chest Resp Effort & Inspection: normal respiratory effort, able to speak in complete sentences and no respiratory distress GI Inspection: Yes normal to inspection Back/Spine/Pelvis Cervical Spine: normal cervical lordosis Thoracic/Lumbar Spine: thoracic and lumbar spine normal to inspection Skin General skin exam: no rashes or lesions noted Neuro General: patient oriented x3, gait normal, tone normal and moves all extremities Extrem General: Yes normal to inspection and Yes capillary refill normal Office Procedures Post Void Residual Post Residual Void Post Void Residual (PVR): 0 [id number]-[id number] Void Residual by ultrasound Results AMB Urinalysis, Automated UA Leukoctes 500 Kuldip/uL Last Edit by Carli Chase [facility] on 11/09/25 10:11 UA Nitrite Negative Last Edit by Carli Chase A on 11/09/25 10:11 UA Urobilinogen 0.2 mg/dL Last Edit by Carli Chase [facility] on 11/09/25 10:1 1 UA Protein 30 mg/dL Last Edit by Carli Chase [facility] on 11/09/25 10:11 UA pH 6.0 Last Edit by Carli Chase [facility] on 11/09/25 10:11 UA Blood 200 Miguel Angel/uL Last Edit by Carli Chase [facility] on 11/09/25 10:11 UA Specific [place] 1.015 Last Edit by Carli Chase [facility] on 11/09/25 10: 11 UA Ketone Negative Last Edit by Carli Chase [facility] on 11/09/25 10:11 UA Bilirubin 0 mg/dL Last Edit by Carli Chase [facility] on 11/09/25 10:11 UA Glucose 0 mg/dL Last Edit by Carli Chase [facility] on 11/09/25 10:11 Results Reviewed Results Reviewed: Laboratory Last Values Urine pH (Auto) 6.0 11/09/25 10:10 Specific [place] (Auto) 1.015 11/09/25 10:10 Urine Protein (Auto) 30 mg/dL 11/09/25 10:10 Glucose (UA)(Auto) 0 mg/dL 11/09/25 10:10 Urine Ketones (Auto) Negative 11/09/25 10:10 Urine Blood (Auto) 200 Miguel Angel/uL 11/09/25 10:10 Urine Nitrite (Auto) Negative 11/09/25 10:10 Urine Bilirubin (Auto) 0 mg/dL 11/09/25 10:10 Urine Urobilinogen (Auto) 0.2 mg/dL 11/09/25 10:10 Leukocyte Esterase (Auto) 500 Kuldip/uL 11/09/25 10:10 Assessment & Plan Assessment & Plan (1) Bladder outlet obstruction: Code(s): N32.0 - Bladder-neck obstruction Category: Medical (2) Bladder stones: Code(s): N21.0 - Calculus in bladder Category: Medical Plan Twelve month follow-up Orders: Orders AMB Urinalysis Automated Today Z13.9 - Encounter for screening, unspecified Urine Cytology Today R31.29 - Other microscopic hematuria AMB Post Void Residual by ultrasound Today N32.0 - Bladder-neck obstruction Prostate Specific Antigen 12 Months N32.0 - Bladder-neck obstruction Medications: Discontinued terazosin Stop tamsulosin, start terazosin Discontinued Reason: Doctor's Order 5 mg PO BEDTIME 30 days 30 caps 4RF N32.0 - Bladder-neck obstruction, N40.1 - Benign prostatic hyperplasia with lower urinary tract symptoms, R35.0 - Frequency of micturition finasteride Discontinued Reason: Duplicate 5 mg PO DAILY 90 tabs 2RF N32.0 - Bladder- neck obstruction Patient Instructions: This note is constructed using voice recognition software. While every effort has been made to ensure accuracy mixer attendant errors may have been included. Imaging studies, laboratory and physical exam results were discussed and reviewed in detail. No major barriers to patient understanding were identified. An opportunity to ask questions regarding the treatment plan was provided. All questions were answered. The patient expressed understanding and agreement with the above treatment plan. The patient is aware they should contact our office by phone for worsening of their current condition or the appearance of new urologic symptoms. Compliance is encouraged with any medications and followup testing that is ordered. It is a privilege to participate in the urologic care of your patient. If you have any questions or concerns regarding treatment for the above conditions, or other urologic issues, please do not hesitate to contact me. The office telephone contact is [phone]. Sincerely, Dr Tonio Veras MD, [facility] - Urology Compassionate Specialist Care for the Genitourinary System Coding Level of Care Code Est Pt Level 3 (41562) Add On Problem Visit Only Diagnoses Bladder outlet obstruction N32.0 Bladder stones N21.0 CPT Codes Post Residual Void - PVR CPT Code: 86146-Tfkz Void Residual by ultrasound ([id number])
--- OUTSIDE RECORDS SUMMARY | 2025-11-09 10:47 | XMS_ITS | Clinical Summary ---
Author Organization [facility] Address [address] [address] Phone Care Team Providers Care Vp Business Development Name Role Phone Abbi Alberto Primary Care Provider [phone]- [phone] Allergies No known active allergies Medications No known medications Social History Tobacco Use Types Packs/Day Years Used Date Smoking Tobacco: Former Cigarettes Smokeless Tobacco: Never Tobacco Cessation:Counseling Given: Not Answered Alcohol Use Standard Drinks/Week Comments Yes 0 (1 standard drink = 0.6 oz pur e alcohol) rare Education Answer Date Recorded Are you interested in more education? Not on lorraine e 09/04/2023 Are you concerned about learning? Not on file 09/04/2023 No 09/04/2023 No 09/04/2023 Digital Access Answer Date Recorded No 09/04/2023 No 09/04/2023 Reliable internet access at home? Not on file 09/04/2023 Device with a working camera? Not on file Intimate Partner Violence Answer Date R ecorded Are you denied basic needs s uch as food, clothing, or medical care? No 09/04/2023 In the past 12 months have y ou been in a relationship with a person who hurts, threatens, or tries to control you? No 09/04/2023 Are you denied basic needs s uch as food, clothing, or medical care? No 09/04/2023 In the past 12 months have y ou been in a relationship with a person who hurts, threatens, or tries to control you? No 09/04/2023 Sex and Gender Information Value Date Recorded Sex Assigned at Not on file Legal Sex Male 9:54 PM EDT Gender Identity Not on file Sexual Orientation Not on file Last Filed Vital Signs Vital Sign Reading Time Taken Comments Blood Pressure 116/83 09/04/2023 8:40 PM EDT Pulse 85 09/04/2023 3:53 PM EDT Temperature 37.1 C (98.7 F) 09/04/2023 8:40 PM EDT Respiratory Rate 16 09/04/2023 8:40 PM EDT Oxygen Saturation 98% 09/04/2023 8:40 PM EDT Inhaled Oxygen Concentration - - Weight 69.4 kg (153 lb) 09/04/2023 3:53 PM EDT Height - - Body Mass Index - - Plan of Treatment Not on file Medical Devices Not on file Insurance [employer] PPO MEDICARE A [employer] PPO MEDICARE A [employer] PPO MEDICARE A CIG PPO MEDICARE A [employer] PPO MEDICARE A [employer] PPO MEDICARE A Care Teams Vp Business Development Relationship Specialty Start Date End Date Abbi Alberto PA [address] [place] [id number] PCP - General Physician Assisted Living Care Manager 09/04/23 Additional Source Comments The information contained in this document represents components of the legal health record. It is not the complete legal health record.[facility]
--- OUTSIDE RECORDS SUMMARY | 2025-11-09 10:47 | XMS_ITS | Encounter Summary ---
Author Organization [facility] Address [address] [facility] [address] [place] [phone] Phone Care Team Providers Care Pipe Smoker Machine Operator Name Role Phone Abbi Alberto Primary Care Provider [phone]- [phone] Encounter Details Date Type Department Care Team (Late st Contact Info) Description 09/04/2023 Procedure Pass [facility], [facility] Scan - [address] [address] Social History Tobacco Use Types Packs/Day Years Used Date Smoking Tobacco: Former Cigarettes Smokeless Tobacco: Never Alcohol Use Standard Drinks/Week Comments Yes 0 [...] on file Sexual Orientation Not on file documented as of this encounter Plan of Treatment Not on file documented as of this encounter Visit Diagnoses Not on filedocumented in this encounter Care Teams Pipe Smoker Machine Operator Relationship Specialty Start Date End Date Abbi Alberto PA [address] [place] [phone] PCP - General Physician [place] 09/04/23 documented as of this encounter Additional Source Comments The information contained in this document represents components of the legal health record. It is not the complete legal health record.[facility]
== END 2025-11-09 10:29 | disposition home or self-care (01) ==
LOC: HO.HUSH 09:49
PROVIDERS: PCP Physician Assistant Medical; Visit Provider Urology
DX: N32.0 Bladder-neck obstruction (principal); N21.0 Calculus in bladder; Z13.9 Encounter for screening, unspecified
CPT/HCPCS: 99213; G2211

== ENCOUNTER 2025-11-09 09:49 | Outpatient (REF) | payer MEDICARE, OTHER, SELFPAY | END 2025-11-09 09:50 | disposition home or self-care (01) | LOC: HO.LAB 09:49 | PROVIDERS: PCP Physician Assistant Medical; Visit Provider Urology | DX: N40.1 Benign prostatic hyperplasia with lower urinary tract symptoms (principal); N32.0 Bladder-neck obstruction; N21.0 Calculus in bladder; R31.29 Other microscopic hematuria; R35.0 Frequency of micturition | CPT/HCPCS: 51798; 81003; 88112; 99212 ==